=== PATIENT | male | born 2000 | race Caucasian/White ===

== ENCOUNTER 2021-02-25 09:11 | Emergency (ER) | payer BC, SELFPAY ==
[2021-02-25 09:15] VITALS: BP 124/71; PULSE 71; RESP 18; TEMP 36.9; O2SAT 98; BMI 23.7
--- NOTE | 2021-02-25 09:32 | HMH.EDUTC ---
[facility] [place] Disposition Clinical Impression: Poison ksenia Disposition: Home, Self-Care Condition on Discharge: Good Instructions: Summertime Rashes: Poison Ksenia, [place], and [place], Poisonous Plants: Ksenia, [place], and [place]: Beware the Oils, Poison Ksenia, Poison [place], Poison [place] Additional Instructions: benadyl as directed cream bid do not scratch return or follow up in ed follow up with pcp if no improvement Prescriptions: predniSONE [Prednisone 20mg Tab] 20 mg PO BID #10 tab Prescription Printed Triamcinolone Acetonide 15 gm TP BID 5 Days #1 cream..g. Prescription Printed Referrals: Provider,Referral, MD [Primary Care Provider] - Time of Disposition: 09:49 Medical Decision Making - Jhoan Inquiry Pt receiving controlled substance: No Vital Signs: 02/25/21 09:15 Temperature 98.5 F Temperature Source Oral Pulse Rate [Right Brachial] 71 Respiratory Rate 18 Blood Pressure [Right Arm] 124/71 Blood Pressure Mean [Right Arm] 88 Blood Pressure Source [Right Arm] Automatic Cuff Blood Pressure Position [Right Arm] Sitting 02 Sat by Pulse Oximetry 98 Oxygen Delivery Method Room Air [facility] [place] HPI - General Chief complaint: Urgent [facility] Stated complaint: rash on body and in eyes Time Seen by Provider: 02/25/21 09:32 Mode of Arrival: Ambulatory Source of Information: Patient Limitations: No Limitations Description of Symptoms (Recalled from Triage Doc. by RN): PATIENT C/O POISON KSENIA RASH TO CHEST, ABDOMEN, BILATERAL ARM/HAND, AND FACE SINCE SUNDAY HEENT Symptoms (Recalled from RN notes): No Resp Symptoms (Recalled from RN notes): No Skin Symptoms (Recalled from RN notes): Yes MS Symptoms (Recalled from RN notes): No Functional Status (Recalled from RN notes): wnl - History of Present Illness Provider Complaint: 20 yr old male presents for rash to face,eyes,chest,abd,efren arms,and hands since sunday. Pt states he thinks he might have gotten into posion ksenia. has been taking benadyl and calamin lotion. - Related Data Previous Rx's Medication Instructions Recorded Triamcinolone Acetonide 15 gm TP BID 5 Days #1 cream..g. 02/25/21 predniSONE [Prednisone 20mg 20 mg PO BID #10 tab 02/25/21 Tab] Allergies Allergy/AdvReac Type Severity Reaction Status Date / Time No Known Allergies Allergy Verified 12/10/18 17:24 - Worker's Comp Is this a Worker's Comp case?: No [facility] History - Hepatitis A Screen Drug use history?: No High risk sexual behaviors?: No History of sexually transmitted infection?: No Currently employed?: No Childcare worker?: No Do you have indoor plumbing?: Yes Do you have electricity?: Yes Attestation statement:: This patient has been screened for Hepatitis A risk factors. I have reviewed the patient's past medical history: Yes - Social History Alcohol Intake: never Occupational Status: other ROS Obtained: Yes Systems reviewed as appropriate & no additional complaints - Constitutional Constitutional: Reports system reviewed and no additional complaints, except as docu, Denies body ache - Eyes Eyes: Reports system reviewed and no additional complaints, except as docu, Denies blurry vision, Denies loss of vision - ENT Ears, Nose, Mouth, and Throat: Reports system reviewed and no additional complaints, except as docu, Denies bleeding gums - Cardiovascular Cardiovascular: Reports system reviewed and no additional complaints, except as docu, Denies chest pain - Respiratory Respiratory: Reports system reviewed and no additional complaints, except as docu, Denies change in phlegm color - Gastrointestinal Gastrointestingal: Reports: system reviewed and no additional complaints, except as docu. Denies: belching - Genitourinary Male Genitourinary: Reports system reviewed and no additional complaints, except as docu - Musculoskeletal Musculoskeletal: Reports system reviewed and no additional complaints, except as docu, Denies joint pain - Integumentary/Breasts
[2021-02-25 09:41] VITALS: BP 124/71; PULSE 71; RESP 18; TEMP 36.9; O2SAT 98
== END 2021-02-25 09:56 | disposition home or self-care (01) ==
PROVIDERS: Emergency Provider Nurse Practitioner Family
DX: L23.7 Allergic contact dermatitis due to plants, except food (principal)
CPT/HCPCS: 96372; 99202; G0463

== ENCOUNTER 2021-03-05 11:17 | Emergency (ER) | payer BC, SELFPAY ==
[2021-03-05 11:20] VITALS: BP 122/77; PULSE 83; RESP 19; TEMP 36.6; O2SAT 99; BMI 24.3
--- NOTE | 2021-03-05 11:58 | HMH.EDUTC ---
[facility] [place] Disposition Clinical Impression: Poison tiffany Disposition: Home, Self-Care Condition on Discharge: Good Instructions: Poisonous Plants: [place], [place], and [place]: Beware the Oils, Poison Tiffany, Poison [place], Poison [place], DI for Poison Tiffany Allergy Additional Instructions: Prevent a poison tiffany rash in the future: Wear skin protection: Wear long pants, a long-sleeved shirt, and gloves. Use a skin block lotion to protect your skin from poison tiffany oil. You can find this at a drugstore without a prescription. Wash clothing after possible exposure: If you think you have been near a poison tiffany plant, wash the clothes you were wearing separately from other clothes. Rinse the washing machine well after you take the clothes out. Scrub boots and shoes with warm, soapy water. Dry clean items and clothing that you cannot wash in water. Poison tiffany oil is sticky and can stay on surfaces for a long time. It can cause a new rash even years later. Bathe your pet: Use warm water and shampoo on your pet's fur. This will prevent the spread of oil to your skin, car, and home. Wear long sleeves, long pants, and gloves while washing pets or any items that may have oil on them. Reduce exposure to poison tiffany: Do not touch plants that look like poison tiffany. Keep your yard free of poison tiffany. While protecting your skin, remove the plant and the roots. Place them in a plastic bag and seal the bag tightly. Do not burn poison tiffany plants: This can spread the oil through the air. If you breathe the oil into your lungs, you could have swelling and serious breathing problems. Oil that clings to the fire sade can land on your skin and cause a rash. Antiseptic or drying creams or ointments: These medicines may be used to dry out the rash and decrease the itching. These products may be available without a doctor's order. Steroids: This medicine helps decrease itching and inflammation. It can be given as a cream to apply to your skin or as a pill. Antihistamines: This medicine may help decrease itching and help you sleep. It is available without a doctor's order. You cannot spread poison tiffany by touching your rash or the liquid from your blisters. Poison tiffany is spread only if you scratch your skin while it still has oil on it. You may think your rash is spreading because new rashes appear over a number of days. This happens because areas covered by thin skin break out in a rash first. Your face or forearms may develop a rash before thicker areas, such as the palms of your hands. Prescriptions: predniSONE [Prednisone 10mg Tab Dose-Pack] 10 mg PO UD DOSE PK 6 Days #21 pack Transmission Status: Received by [facility] #[id number] Referrals: Provider,Referral, [Primary Care Provider] - As needed Medical Decision Making - Jhoan Inquiry Pt receiving controlled substance: No Jhoan was queried for this patient: No Vital Signs: 03/05/21 11:20 03/05/21 12:15 Temperature 97.8 F 97.8 F Temperature Source Oral Pulse Rate 83 Pulse Rate [Right Brachial] 83 Respiratory Rate 19 19 Blood Pressure 122/77 Blood Pressure [Right Arm] 122/77 Blood Pressure Mean [Right Arm] 92 Blood Pressure Source [Right Arm] Automatic Cuff Blood Pressure Position [Right Arm] Sitting 02 Sat by Pulse Oximetry 99 Oxygen Delivery Method Room Air Orders (Tests/Meds): ED MEDICATIONS Discontinued Medications Generic Name Dose Route Start Last Admin Trade Name Freq PRN Reason Stop Dose Admin Methylprednisolone Sodium Succinate 125 mg 03/05/21 12:03 03/05/21 12:08 Methylprednisolone Sod Succ 125mg Vial IM 03/05/21 12:04 125 mg ONCE ONE Administration Medical Decision Narrative: Medications discussed with pharmacy and will give injection of solu medrol and 10mg Prednisone dose pack to help dry up the rash [facility] [place] HPI - General Stated complaint: rash Time Seen by Provider: 03/05/21 11:58 Mode of Arrival: Ambulatory Source of Information: Patient Limitations: No Li
[2021-03-05 12:15] VITALS: BP 122/77; PULSE 83; RESP 19; TEMP 36.6; O2SAT 99
== END 2021-03-05 12:25 | disposition home or self-care (01) ==
PROVIDERS: Emergency Provider Nurse Practitioner
DX: L23.7 Allergic contact dermatitis due to plants, except food (principal)
CPT/HCPCS: 96372; 99202; G0463

== ENCOUNTER 2023-04-08 13:16 | Emergency (ER) | payer BC, SELFPAY ==
[2023-04-08 13:18] VITALS: BP 138/81; PULSE 103; RESP 18; TEMP 36.6; O2SAT 100; BMI 24.4
--- NOTE | 2023-04-08 13:46 | EXP.UTC ---
Discharge Plan Disposition Patient Disposition: Home, Self-Care Condition: Good Prescriptions Prescriptions: New cephalexin 500 mg capsule 500 mg PO QID Qty: 40 0RF mupirocin 2 % ointment 1 applic topical TID 7 Days Qty: 15 0RF No Action prednisone 10 MG tablets,dose pack 10 mg PO UD DOSE PK 6 Days Qty: 21 0RF Rx Instructions: 10mg Prednisone dose pack as directed Referrals Follow up/Referrals: Joe Shi MD [Primary Care Provider] - See instructions Activity Restrictions/Add. Instructions Additional Instructions/Restrictions: Keep the wound clean and dry. Keep a dressing on it if you are going to be getting it dirty. Watch the wound for signs of infection, such as redness, swelling, drainage, fever. etc. Take tylenol or ibuprofen for pain. Follow up with your regular doctor. GO TO THE ER FOR ANY WORSENING SYMPTOMS OR CONCERNS. Clinical Impressions Clinical Impression: Fish hook injury of right hand, Need for Tdap vaccination Instructions Patient Instructions: DI for Removal of Foreign Body From Skin, Tetanus, Diphtheria, Pertussis (Tdap) Vaccine Discharge ED Provider: John Salvador [facility] General Stated complaint: AO 04/08, fish hook stuck in right hand Mode of Arrival: Ambulatory Source of Information: Patient Limitations: No Limitations Time Seen by Provider: 04/08/23 13:46 Description of Symptoms (Recalled from Triage Doc. by RN): Patient presents with a fish hook in his right index finger. HEENT Symptoms (Recalled from RN notes): No Resp Symptoms (Recalled from RN notes): No Skin Symptoms (Recalled from RN notes): Yes MS Symptoms (Recalled from RN notes): No Functional Status (Recalled from RN notes): wnl History of Present Illness Provider Complaint: He is here with a fish hook embedded in his right index finger. He states that the hook became embedded about 30 minutes [employer]. His tetanus immunization is not up to date. Related Data Previous Rx's Medication Instructions Recorded prednisone 10 mg tablets in a dose 10 mg PO UD DOSE PK 6 days ##21 03/05/21 pack cephalexin 500 mg capsule 500 mg PO QID #40 caps 04/08/23 mupirocin 2 % topical ointment 1 applic topical TID 7 days #15 04/08/23 grams Allergies Allergy/AdvReac Type Severity Reaction Status Date / Time No Known Allergies Allergy Verified 12/10/18 17:24 Worker's Comp Is this a Worker's Comp case?: No [facility] Disclaimer: The information contained in this section may have been updated after the patient was seen, as this information can be updated by other users. Social History Smoking Status: Never smoker alcohol intake: never current occupational status: other Travel in the last 8 weeks: None ROS Obtained: Yes All systems reviewed & no additional complaints except as documented Constitutional Constitutional: Denies chills and Denies fever(s) Eyes Eyes: Denies eye discharge ENT Ears, Nose, Mouth, and Throat: Denies dizziness, Denies otalgia and Denies sore throat Cardiovascular Cardiovascular: Denies chest pain Respiratory Respiratory: Denies shortness of breath, Denies chest congestion, Denies cough, Denies stridor and Denies wheezing Gastrointestinal Gastrointestingal: Denies nausea or vomiting Musculoskeletal Musculoskeletal: Reports system reviewed and no additional complaints, except as documented and Denies arthralgias Integumentary/Breasts Skin/Breast: Reports as per HPI and Denies rash Neurologic Neurologic: Denies dizziness and Denies paresthesias Allergic/Immunologic Allergic/Immunologic: Denies wheezing Physical Exam General General appearance: alert and in no apparent distress Head Head exam: atraumatic, normocephalic and normal inspection Eye Eye exam: Present normal appearance, PERRL and EOMI ENT ENT exam: Present normal exam, normal oropharynx, mucous membranes moist, TM's normal bilatera
[2023-04-08 14:36] VITALS: BP 138/81; PULSE 103; RESP 18; TEMP 36.6; O2SAT 100
== END 2023-04-08 14:38 | disposition home or self-care (01) ==
PROVIDERS: Emergency Provider Nurse Practitioner Family; PCP Family Medicine
DX: S60.551A Superficial foreign body of right hand, initial encounter (principal); Z23 Encounter for immunization; W45.8XXA Other foreign body or object entering through skin, initial encounter
CPT/HCPCS: 10120; 90715; 96372; 99212; 99213; 99214; G0463